=== PATIENT | male | born 1950 | race African-American/Black ===

== ENCOUNTER 2017-04-21 04:43 | Emergency (ER) | payer BC, OTHER ==
[~2017-04-21] VITALS: Ht 177.8 cm; Wt 134.0 kg
[2017-04-21] MEDS ORDERED: KETOROLAC 30MG/ML VIAL IV STA (07:41)
[2017-04-21] MEDS ORDERED: SODIUM CHLORIDE 0.9% 1,000 ML IV ONE (07:41)
[2017-04-21] MEDS ORDERED: ONDANSETRON HCL 4MG/2ML VIAL IV ONE (07:45)
[2017-04-21 07:58] LABS: HEMATOCRIT. 47.5 % (42.0-52.0); HEMOGLOBIN. 15.7 g/dL (14.0-18.0); MEAN CORPUSCULAR VOLUME 87.4 fL (80.0-94.0); MEAN PLATELET VOLUME 9.4 fl (7.4-10.4); PLATELET 149 x1000/uL (130-400); RED BLOOD CELL COUNT 5.43 mill/uL (4.7-6.1); RED CELL DISTRIBUTION WIDTH 15.4 % (11.6-14.6)
[2017-04-21 08:04] LABS: CHLORIDE 104 mEq/L (98-107)
[2017-04-21 08:06] LABS: BASOPHILS % 0.8 % (0.0-2.0); EOSINOPHILS % 1.7 % (0.0-5.0); LYMPHOCYTES % 18.1 % (20.0-50.0); MONOCYTES % 8.2 % (2.0-8.0); NEUTROPHILS % 71.2 % (40.0-76.0)
[2017-04-21 08:21] LABS: CARBON DIOXIDE 29 mEq/L (21-32)
[2017-04-21 08:24] LABS: PROTHROMBIN TIME 10.5 sec (9.4-11.6)
[2017-04-21 09:28] LABS: CLARITY URINE TURBID (CLEAR); COLOR URINE YELLOW (YELLOW); KETONES URINE NEGATIVE (NEGATIVE); LEUKOCYTE ESTERASE URINE TRACE (NEGATIVE); NITRITE URINE NEGATIVE (NEGATIVE); OCCULT BLOOD URINE 2+ (NEGATIVE); PROTEIN URINE NEGATIVE (NEGATIVE); SPECIFIC GRAVITY URINE 1.024 (1.005-1.030); UROBILINOGEN URINE 0.2 E.U./dL (0.2-1.0)
[2017-04-21 09:42] VITALS: BP 167/85
== END 2017-04-21 11:04 | disposition home or self-care (01) ==
LOC: ER 04:43
DX: N20.0 Calculus of kidney (principal); E11.9 Type 2 diabetes mellitus without complications; I10 Essential (primary) hypertension
CPT/HCPCS: 36415; 80053; 81001; 83690; 85025; 85610; 96361; 96374; 96375; 99284; J1885; J2405; J7030

== ENCOUNTER 2018-06-09 16:30 | Emergency (ER) | payer BC ==
[~2018-06-09] VITALS: Ht 180.3 cm; Wt 109.0 kg
[2018-06-09 20:35] VITALS: BP 140/80
== END 2018-06-09 22:10 | disposition left against medical advice (07) ==
LOC: ER 16:30
DX: M54.9 Dorsalgia, unspecified (principal); Z53.21 Procedure and treatment not carried out due to patient leaving prior to being seen by health care provider

== ENCOUNTER 2024-04-13 13:23 | Emergency (ER) | payer MEDICARE, OTHER ==
[~2024-04-13] VITALS: Ht 182.9 cm; Wt 110.0 kg
[~2024-04-13 13:23] MED LIST: APIX5TAB MT
[2024-04-13 13:27] VITALS: BP 113/67; PULSE 104; RESP 18; TEMP 98.2; O2SAT 98
== END 2024-04-13 14:22 | disposition left against medical advice (07) ==
LOC: ER 13:23
DX: M54.50 Low back pain, unspecified (principal); E11.9 Type 2 diabetes mellitus without complications; E78.00 Pure hypercholesterolemia, unspecified; I50.9 Heart failure, unspecified; Z79.01 Long term (current) use of anticoagulants; Z88.2 Allergy status to sulfonamides
CPT/HCPCS: 99283